=== PATIENT | female | born 1955 | race Caucasian/White ===

== ENCOUNTER 2019-02-03 08:38 | Day surgery (SDC) | payer OTHER ==
[2019-02-03] MEDS ORDERED: FAMOTIDINE 20 MG TAB PO ONE (08:39)
[2019-02-03] MEDS ORDERED: ASPIRIN EC 325 MG TAB PO ONE ×2 (08:39→09:33)
[2019-02-03] MEDS ORDERED: DIAZEPAM 5 MG TAB PO ONE (08:39)
[2019-02-03] MEDS ORDERED: diphenhydrAMINE 25 MG CAP PO ONE ×2 (08:39→09:32)
[2019-02-03] MEDS ORDERED: NS 1,000 ML IV ONE (08:39)
[2019-02-03] MEDS ORDERED: FAMOTIDINE 20 MG TAB ONE (09:32)
[2019-02-03] MEDS ORDERED: DIAZEPAM 5 MG TAB ONE (09:33)
[2019-02-03 09:35] LABS: PLATELET COUNT 279 10^3/uL (150-400)
[2019-02-03 09:51] LABS: INR 1.04 (0.83-1.16); PROTIME(PATIENT) 13.2 SEC (12.0-15.0)
--- NOTE | 2019-02-03 10:28 | PDHPUP ---
History & Physical Update H&P update statement: This history and physical update is based on an assessment of the patient which was completed after admission or registration (within 24 hours), but prior to the surgery/procedure. H&P update: H&P reviewed & patient examined, no change in patient's condition since H&P completed
--- NOTE | 2019-02-03 10:28 | PDPROPOC ---
Sedation Plan of Care Sedation Plan of Care: vital signs stable, mental status noted, patient educated of risks, benefits, alternatives, patient can tolerate sedation ASA Classification: ASA 3 Planned drugs: fentanyl, midazolam Mallampati Score: Class 2 Mallampati Reference Image: Patient passed 3-3-2 rule?: No
--- NOTE | 2019-02-03 11:01 | PDDXCAT ---
Diagnostic Cath Note - . Date: 02/03/19 Elementary Substitute Teacher: Katelynn Indication: other (known valvular heart disease with mitral stenosis) - Procedure Access: right groin Procedure: left heart catheterization, coronary angiography, right heart catheterization - Materials Left Heart Cath size: 5F Left Heart Cath materials: JL3.5, JR4.0, pigtail - Findings-Left Heart Catheterization LM: The left main is 6mm in size and trifurcates into a LAD, Circumflex and Ramus system. LCX: The left circumflex is 2.5mm in size and is weakly co-dominant. The vessel gives rise to a 2.5mm high obtuse marginal branch. There is 60-65% stenosis in the proximal segment of the high obtuse marginal branch. RCA: The right coronary artery is 4mm in size and co-dominant. The vessel gives rise to a PDA branch. There is YUNIER III flow throughout. - Findings-Right Heart Catheterization RA: 6/7/4; SAT 64.5%; RV: 34/2/8 PA: 31/13/21; SAT 66.7% PAOP: 17// AO: 111/53/76; SAT 92.7% CO: 4.88 CI: 2.53 Complications: NONE Estimated blood loss: <50ml Closure method: TR Band Assessment: The patient has non obstructive coronary artery disease for the most part with a single lesion in the high obtuse marginal that may be a target for bypass surgery if open heart surgery is contemplated. There was no LV gram of left heart cath performed due to a mechanical aortic valve. Of note is that the right heart and pulmonary pressures were normal and not elevated as might be expected with severe mitral stenosis. Consider preoperative SAMANTHA to confirm the status of the status of the mitral valve prior to surgery. Plan: The patient will proceed with mitral valve surgery evaluation on Wednesday of next week. Intervention: NONE Patient Problems: Problems Problem Status Onset Mitral stenosis Acute
[2019-02-03] MEDS ORDERED: LIDOCAINE 1% 300 MG/30 ML SDV ONE (11:03)
[2019-02-03] MEDS ORDERED: fentaNYL 100 MCG/2 ML INJ ONE (11:03)
[2019-02-03] MEDS ORDERED: MIDAZOLAM 2 MG/2 ML VIAL ONE (11:04)
[2019-02-03] MEDS ORDERED: IOPAMIDOL (ISOVUE-370) 150 ML BTL IV ONE (11:04)
[2019-02-03] MEDS ORDERED: HEPARIN 10,000 UNIT/10 ML MDV (1,000 UNIT/ML) ONE (11:04)
[2019-02-03] MEDS ORDERED: VERAPAMIL 5 MG/2 ML VIAL ONE (11:04)
[2019-02-03] MEDS ORDERED: ONDANSETRON 4 MG/2 ML VIAL IVP PRN (13:19)
[2019-02-03] MEDS ORDERED: ATROPINE SULFATE 1 MG/10 ML SYR IVP PRN (13:19)
[2019-02-03] MEDS ORDERED: HYDROCODONE/APAP 5/325 TAB PO PRN (13:19)
[2019-02-03] MEDS ORDERED: OXYCODONE/APAP 5/325 TAB PO PRN (13:19)
[2019-02-03] MEDS ORDERED: NITROGLYCERIN 0.4 MG BTL SL PRN (13:19)
--- NOTE | 2019-02-03 13:21 | CPEKG ---
Test Reason : OPEN Blood Pressure : / mmHG Vent. Rate : 076 BPM Atrial Rate : 076 BPM P-R Int : 161 ms QRS Dur : 105 ms QT Int : 428 ms P-R-T Axes : 034 -34 063 degrees QTc Int : 482 ms Sinus rhythm Left ventricular hypertrophy Confirmed by Gavin Mathew ([id number]) on 02/03/2019 1:21:31 PM Referred By: Ciaran Pace Confirmed By:Gavin Mathew
[2019-02-03] MEDS ORDERED: OXYCODONE/APAP 5/325 TAB PO SCH (16:00)
[2019-02-03] MEDS ORDERED: AMITRIPTYLINE HCL 100 MG TAB PO SCH (21:00)
[2019-02-03] MEDS ORDERED: NON-FORMULARY NEW DRUG (Simvastatin [Zocor] 40 MG) PO SCH (21:00)
[2019-02-03] MEDS ORDERED: METOPROLOL TARTRATE 50 MG TAB PO SCH (21:00)
[2019-02-03] MEDS ORDERED: WARFARIN SODIUM 5 MG TAB PO SCH (21:00)
[2019-02-04] MEDS ORDERED: MULTIVITAMINS 1 EACH TAB PO SCH (09:00)
[2019-02-04] MEDS ORDERED: QUINAPRIL PO SCH (09:00)
[2019-02-04] MEDS ORDERED: HYDROCHLOROTHIAZIDE PO SCH (09:00)
[2019-02-04] MEDS ORDERED: LISINOPRIL 20 MG TAB PO SCH (09:00)
[2019-02-04] MEDS ORDERED: [UNRECOGNIZED DRUG - OTHER] PO SCH (09:00)
[2019-02-04] MEDS ORDERED: ASPIRIN 81 MG CHEWABLE TAB PO SCH (09:00)
[2019-02-04] MEDS ORDERED: ALLOPURINOL 100 MG TAB PO SCH (09:00)
== END 2019-02-03 16:30 | disposition home or self-care (01) ==
LOC: FCATH 08:38
PROVIDERS: ATTEND Internal Medicine Cardiovascular Disease
PROC: B2111ZZ Fluoroscopy of Multiple Coronary Arteries using Low Osmolar Contrast (ICD-10-PCS; principal; 2019-02-03)
PROC: 4A023N8 Measurement of Cardiac Sampling and Pressure, Bilateral, Percutaneous Approach (ICD-10-PCS; principal; 2019-02-03)
DX: I05.0 Rheumatic mitral stenosis (principal); Z95.2 Presence of prosthetic heart valve; Z79.01 Long term (current) use of anticoagulants; E78.5 Hyperlipidemia, unspecified; I10 Essential (primary) hypertension; E08.40 Diabetes mellitus due to underlying condition with diabetic neuropathy, unspecified
CPT/HCPCS: J1644; J2250; J3010; Q9967

== ENCOUNTER 2019-02-23 05:18 | Inpatient (IN) | payer OTHER ==
[2019-02-23] MEDS ORDERED: ceFAZolin 2 GM/DEXTROSE 100 ML IV ONE (05:37)
[2019-02-23] MEDS ORDERED: niCARdipine/NACL 200 ML IV ONE (05:37)
[2019-02-23] MEDS ORDERED: AMINOCAPROIC ACID 5 GM/20 ML VIAL IV ONE (05:37)
[2019-02-23] MEDS ORDERED: CITRATE DEXTROSE SOLN 500 ML BAG MISC ONE (05:37)
[2019-02-23] MEDS ORDERED: LIDOCAINE 1% 2 ML INJ ID PRN (05:37)
[2019-02-23] MEDS ORDERED: MANNITOL 25% 12.5 GM/50 ML VIAL IVP ONE (06:00)
[2019-02-23] MEDS ORDERED: MILRINONE/DEXTROSE 100 ML IV ONE (06:00)
[2019-02-23] MEDS ORDERED: NOREPINEPHRINE BITARTRATE 16 MG in NS 250 ML IV ONE (06:00)
[2019-02-23] MEDS ORDERED: CALCIUM CHLORIDE IV ONE (06:00)
[2019-02-23] MEDS ORDERED: EPINEPHRINE IV ONE (06:00)
[2019-02-23] MEDS ORDERED: DOBUTamine/DEXTROSE 250 ML IV ONE (06:00)
[2019-02-23] MEDS ORDERED: INSULIN REGULAR HUMAN 100 UNIT in NS 100 ML IV ONE (06:00)
[2019-02-23] MEDS ORDERED: PHENYLEPHRINE HCL 50 MG in NS 250 ML IV ONE (06:00)
[2019-02-23] MEDS ORDERED: CARDIOPLEGIC SOLUTION 1,052.8 ML PF ONE (06:00)
[2019-02-23] MEDS ORDERED: NS IV ONE (06:00)
[2019-02-23] MEDS ORDERED: CALCIUM CHLORIDE 1 GM/10 ML INJ ONE ×3 (06:42→08:51)
[2019-02-23] MEDS ORDERED: PROTAMINE SULFATE 50 MG/5 ML VIAL IVP ONE (06:42)
[2019-02-23] MEDS ORDERED: MILRINONE/DEXTROSE/100 ML BAG IV ONE (06:43)
[2019-02-23] MEDS ORDERED: HEPARIN 10,000 UNIT/10 ML MDV (1,000 UNIT/ML) ONE ×2 (06:43→06:46)
[2019-02-23] MEDS ORDERED: NA BICARBONATE 50 MEQ/50 ML VIAL ONE ×3 (06:43→14:16)
[2019-02-23] MEDS ORDERED: AMINOCAPROIC ACID 5 GM/20 ML VIAL ONE ×2 (06:43→06:46)
[2019-02-23] MEDS ORDERED: niCARdipine/NACL/200 ML BAG IV ONE (06:44)
[2019-02-23] MEDS ORDERED: ceFAZolin 1 GM VIAL ONE ×3 (06:44→12:58)
[2019-02-23] MEDS ORDERED: DOPamine/DEXTROSE 400 MG/250 ML BAG IV ONE (06:44)
[2019-02-23] MEDS ORDERED: ADENOSINE 6 MG/2 ML VIAL ONE (06:44)
[2019-02-23] MEDS ORDERED: AMIODARONE HCL 150 MG/3 ML VIAL ONE ×2 (06:44→06:46)
[2019-02-23] MEDS ORDERED: ALBUMIN 5% 250 ML BOTTLE IV ONE (06:45)
[2019-02-23] MEDS ORDERED: NITROGLYCERIN/D5W 50 MG/250 ML BOTTLE IV ONE (06:45)
[2019-02-23] MEDS ORDERED: CITRATE DEXTROSE SOLN 500 ML BAG ONE (06:46)
[2019-02-23] MEDS ORDERED: LIDOCAINE 2% 100 MG/5 ML SYR ONE ×2 (06:46→07:18)
[2019-02-23] MEDS ORDERED: methylPREDNISolone SOD SUCC 1 GM/8 ML VIAL ONE (06:47)
[2019-02-23] MEDS ORDERED: MAGNESIUM SULFATE 1 GM/2 ML VIAL ONE (06:47)
[2019-02-23] MEDS: MUPIROCIN 2% 22 GM OINT NS SCH ×3 (06:50→21:21)
[2019-02-23] MEDS ORDERED: LR 1,000 ML IV ONE (06:51)
[2019-02-23] MEDS ORDERED: MIDAZOLAM 2 MG/2 ML VIAL IVP ONE (06:52)
--- NOTE | 2019-02-23 06:58 | PDHPUP ---
History & Physical Update H&P update statement: This history and physical update is based on an assessment of the patient which was completed after admission or registration (within 24 hours), but prior to the surgery/procedure. H&P update: H&P reviewed & patient examined, changes noted (Pt requests exchange of her mechanical aortic valve for a bioprosthesis to avoid snf need for anticoagulation)
--- NOTE | 2019-02-23 07:07 | PDANEPAE ---
ANE History of Present Illness MS with mechanical AV s/f redo stenotomy and MVR/AVR ANE Past Medical History - Cardiovascular History Hx Hypertension: Yes Cardiovascular History Comment: HYPERLIPIDEMIA. MITRAL VALVE STENOSIS - Pulmonary History Hx COPD: No Hx Asthma/Reactive Airway Disease: No Hx Recent Upper Respiratory Infection: No Hx Oxygen in Use at Home: No Hx Sleep Apnea: No Sleep Apnea Screening Result - Last Documented: Negative - Neurologic History Hx Cerebrovascular Accident: No Hx Seizures: No Hx Dementia: No Neurologic History Comment: MIGRAINES WHEN YOUNGER. MENIERES - L EAR - Endocrine History Hx Diabetes: Yes Endocrine History Comment: DM II - Renal History Hx Renal Disorders: Yes Renal History Comment: KIDNEY STONES IN PAST - Liver History Hx Hepatic Disorders: No - Neurological & Psychiatric Hx Hx Neurological and Psychiatric Disorders: No Neurological / Psychiatric History Comment: AMITRIPTYLINE FOR SLEEP - Cancer History Hx Cancer: Yes Cancer History Comment: UTERINE & ABD MASS - Congenital Disorder History Hx Congenital Disorders: No - GI History Hx Gastrointestinal Disorders: Yes Gastrointestinal History Comment: GERD - Other Health History Other Health History: ANEMIA - TAKES IRON - Chronic Pain History Chronic Pain: Yes (BACK PAIN - LUMBAR) - Surgical History Prior Surgeries: HERNIA REPAIR. VALVE REPLACEMENT. HYSTERECTOMY TUMOR ABD REMOVED. TONSILLECTOMY. L ELBOW SURGERY. RAMON KIDNEY STONES - LITHOTRIPSY ANE Review of Systems Review of Systems: - Exercise capacity METS (RN): 3 METS ANE Patient History - Allergies Allergies/Adverse Reactions: No Known Allergies Allergy (Verified 02/01/19 10:06) - Home Medications Home medications: home medication list seen and reviewed Home Medications: Allopurinol [Allopurinol 100 MG (*)] 200 mg PO DAILY 02/01/19 [Last Taken 08:00] Amitriptyline HCl [Elavil 100 MG (*)] 100 mg PO HS 02/01/19 [Last Taken 20:00] Aspirin [Aspirin 81mg (*)] 81 mg PO DAILY 02/01/19 [Last Taken 02/22/19 08:00] Ferrous Sulfate [Ferrous Sulf 325 MG (*)] 325 mg PO BID 02/01/19 [Last Taken 20:00] Lisinopril [Zestril 20 mg (*)] 20 mg PO DAILY 02/01/19 [Last Taken 02/22/19 08: 00] Metoprolol Tartrate [Lopressor 50 mg (*)] 50 mg PO BID 02/01/19 [Last Taken 07:00] Multivitamins [Multivitamin (*)] 1 each PO DAILY 02/01/19 [Last Taken 02/22/19 08:00] Quinapril/Hydrochlorothiazide [Accuretic 20-25 mg Tablet] 1 each PO DAILY [Last Taken 02/22/19 20:00] Simvastatin [Zocor] 40 mg PO HS 02/01/19 [Last Taken 02/22/19 20:00] Warfarin Sodium [Coumadin 5MG (*)] 10 mg PO HS 02/01/19 [Last Taken 02/19/19 20: 00] metFORMIN HCL [Glucophage 1000 mg] 1,000 mg PO BIDMEAL 02/01/19 [Last Taken 06/29] oxyCODONE/APAP 5/325 [Percocet 5/325 (*)] 1 tab PO TID 02/01/19 [Last Taken 23:55] Enoxaparin [Lovenox 80 MG (*)] 80 mg SQ BID 02/10/19 [Last Taken 02/22/19 06:45] - NPO status NPO Since - Liquids (Date): 02/22/19 NPO Since - Liquids (Time): 23:55 NPO Since - Solids (Date): 02/22/19 NPO Since - Solids (Time): 18:30 - Anes Hx Anes Hx: no prior problems - Smoking Hx Smoking Status: Never smoked - Alcohol Use Alcohol Use: None - Family Anes Hx Family Anes Hx: none Family Hx Anesthesia Complications: NEG ANE Labs/Vital Signs - Vital Signs Blood Pressure: 129/73 Heart Rate: 102 Respiratory Rate: 19 O2 Sat (%): 94 Height: 167.64 cm Weight: 83.915 kg ANE Physical Exam - Airway Neck exam: FROM Mallampati Score: Class 2 Mouth exam: normal dental/mouth exam - Pulmonary Pulmonary: no respiratory distress - Cardiovascular Cardiovascular: regular rate and rhythym - ASA Status ASA Status: III ANE Anesthesia Plan Anesthesia Plan: general endotracheal anesthesia Lines/Monitors: arterial line, central line, SAMANTHA
[2019-02-23] MEDS ORDERED: PROPOFOL/EMULSION 500 MG/50 ML BOTTLE IV ONE ×2 (07:17→09:55)
[2019-02-23] MEDS ORDERED: ROCURONIUM 100 MG/10 ML VIAL ONE (07:17)
[2019-02-23] MEDS ORDERED: MIDAZOLAM 2 MG/2 ML VIAL ONE (07:17)
[2019-02-23] MEDS ORDERED: REMIFENTANIL HCL 1 MG VIAL ONE ×2 (07:17→09:55)
[2019-02-23] MEDS ORDERED: fentaNYL 250 MCG/5 ML INJ ONE (07:17)
[2019-02-23] MEDS ORDERED: PHENYLEPHRINE HCL 100 MCG/ML SYR ONE ×3 (07:18→08:46)
[2019-02-23] MEDS ORDERED: ONDANSETRON 4 MG/2 ML VIAL ONE (07:18)
[2019-02-23] MEDS ORDERED: ePHEDrine SULFATE 25 MG/5 ML SYR ONE (07:18)
[2019-02-23] MEDS ORDERED: DEXAMETHASONE 4 MG/ML VIAL ONE ×2 (07:18)
[2019-02-23] MEDS ORDERED: LIDOCAINE HCL 160 MG/4 ML LTA KIT TP ONE (07:24)
[2019-02-23] MEDS ORDERED: DEXMEDETOMIDINE HCL 400 MCG in NS 100 ML IV SCH (07:30)
[2019-02-23] MEDS ORDERED: ROCURONIUM 50 MG/5 ML VIAL ONE ×2 (10:22→12:56)
[2019-02-23] MEDS ORDERED: fentaNYL 100 MCG/2 ML INJ ONE (12:56)
--- NOTE | 2019-02-23 13:33 | POSTOPPROG ---
Post Op Note Date of Operation: 02/23/19 Surgeon: Johny Kelly Assistant: Malena Polanco PA-C Anesthesiologist: Adalid Anesthesia: GET(General Endotracheal) Pre-op Diagnosis: mitral stenosis, mechanical aortic valve Post-op Diagnosis: same Procedure: Redo median sternotomy, MVR#25 Magna, redo AVR#19 Intuity Findings: previous aortic root enlargement, thickened MV w poor leaflet mobility Inf/Abcess present in the surg proc area at time of surgery?: No EBL: n/a Total fluids administered: incl 3u PRBC, 900 ml cell saver Complications: none Bowel Protocol: N/A Clean Closure Performed: Yes Drains: Other (Chest tubes x 3, bilat pleural and ant mediastinal) Specimen(s): old mechanical valve
[2019-02-23] MEDS ORDERED: POTASSIUM Cl (KCl) 50 ML IV PRN (13:38)
[2019-02-23] MEDS ORDERED: D50W 25 GM/50 ML SYR IVP PRN (13:38)
[2019-02-23] MEDS ORDERED: NOREPINEPHRINE BITARTRATE 16 MG in NS 250 ML IV PRN (13:38)
[2019-02-23] MEDS ORDERED: MAGNESIUM HYDROXIDE 30 ML UDCUP PO PRN (13:38)
[2019-02-23] MEDS ORDERED: fentaNYL 100 MCG/2 ML INJ IVP PRN (13:38)
[2019-02-23] MEDS ORDERED: METOCLOPRAMIDE 10 MG/2 ML VIAL IVP PRN (13:38)
[2019-02-23] MEDS ORDERED: ACETAMINOPHEN 650 MG SUPP PR PRN (13:38)
[2019-02-23] MEDS ORDERED: ONDANSETRON DISINTEGRATING 4 MG TAB PO PRN (13:38)
[2019-02-23] MEDS ORDERED: CEPACOL LOZENGE PO PRN (13:38)
[2019-02-23] MEDS ORDERED: ACETAMINOPHEN 325 MG TAB PO PRN (13:38)
[2019-02-23] MEDS ORDERED: ONDANSETRON 4 MG/2 ML VIAL IVP PRN (13:38)
[2019-02-23] MEDS ORDERED: SODIUM CL NASAL 45 ML BTL EACHNARE PRN (13:38)
[2019-02-23] MEDS ORDERED: MEPERIDINE 25 MG/0.5 ML AMP IVP PRN (13:38)
[2019-02-23] MEDS ORDERED: PANTOPRAZOLE SODIUM 40 MG VIAL IVP ONE (13:38)
[2019-02-23] MEDS ORDERED: BISACODYL 10 MG SUPP PR PRN (13:38)
[2019-02-23] MEDS ORDERED: POLYETHYLENE GLYCOL 3350 17 GM PKT PO PRN (13:38)
[2019-02-23] MEDS ORDERED: LACTULOSE 20 GM/30 ML UDCUP PO PRN (13:38)
[2019-02-23] MEDS ORDERED: NS 1,000 ML IV SCH (13:45)
[2019-02-23] MEDS ORDERED: INSULIN REGULAR HUMAN 100 UNIT in NS 100 ML IV SCH (14:00)
[2019-02-23] MEDS ORDERED: DOBUTamine/DEXTROSE 250 ML IV SCH (14:00)
[2019-02-23] MEDS ORDERED: NA BICARBONATE 50 MEQ/50 ML VIAL IV ONE (14:28)
[2019-02-23] MEDS: ALBUMIN 5% 250 ML IV PRN ×2 (14:34→14:55)
--- NOTE | 2019-02-23 15:06 | PDMN ---
Medical Necessity Medical necessity: Pt meets inptp criteria per MD order and [facility] S-[id number], Cardiac Valve Replacement or Repair, 5 days, MCR IP only list, 63 y/o w/mitral stenosis , previous aortic root enlargement, and thickened MV w/poor leaflet mobility underwent MVR, redo AVR, redo sternotomy, anticipate>2MN for ongoing post-op care.
--- NOTE | 2019-02-23 15:07 | GOP ---
[f rep st] OPERATIVE REPORT DATE OF OPERATION: 02/23/2019 SURGEON: Johny Kelly MD DOUGH MIXER HELPER: BALDO Huerta PREOPERATIVE DIAGNOSIS: 1. Severe mitral stenosis. 2. Previous mechanical aortic valve placement. POSTOPERATIVE DIAGNOSIS: PROCEDURE PERFORMED: 1. Redo sternotomy and aortic valve replacement with a 19 mm Freeman Intuity bioprosthesis. 2. Mitral valve replacement with a 25 mm Freeman mitral Magna Ease. FINDINGS: INDICATIONS: This is a 63-year-old woman who just a couple years ago underwent aortic valve replacem ent at [facility]. She had a brief period of time where she felt better, but now has been expe riencing progressive dyspnea on exertion and near syncopal episodes. Echocardiography reveals that s he has a normally functioning very small mechanical mitral valve with a mean gradient of 18, as well as severe mitral stenosis. She was recommended to undergo reoperation. During the workup, I advised her that it may be necessary to remove the aortic prosthesis in order to gain access to the mitral v alve. DESCRIPTION OF PROCEDURE: The patient was taken to the operating room and placed on the operating ta ble in a supine position. After induction of general anesthesia and single-lumen tracheal tube intub ation, the patient was prepped and draped sterilely. The previous incision was opened. The wires we re removed. An oscillating saw was used to open the sternum. This was achieved without difficulty. Once this was completed, we then placed a retractor and spent a great deal of time lysing dense adhe sions throughout the mediastinum. We dissected out the aorta and the superior vena cava and heparini zed the patient. We next cannulated the aorta with a size 8.0 Soft-Flow aortic cannula. This was do ne just proximal to the aortic arch. Next, we cannulated the superior vena cava and cardiopulmonary bypass was then instituted. IVC cannula was also placed then. Once we had exposed the lateral wall of the left atrium and mobilized the aorta again, which was done with some difficulty due to the exte nsive scarring throughout the mediastinum, we then placed a cross-clamp and arrested the heart with 1 L of [place] solution. I opened the aorta. The patient had a previous root enlargement which some what complicated the procedure, but we were able to expose the valve. It was obviously a 19 mm valve . The mechanical valve was excised in order to gain access to her mitral valve. We then opened the left atrium. The valve was very difficult to see even with the aortic valve out. The anterior leafl et was essentially fixed and heavily calcified. This was resected. There was a large part of calciu m in the posterior annulus. We resected the anterior and posterior leaflets, debrided the annulus an d sized this to a 25 mm bioprosthetic valve. Sutures were then placed around the annulus, again with some difficulty due to the calcification, but we seated the 25 mm valve with the Cor-Knot device and closed the left atrium. Attention was redirected to the aortic valve. Notably there was extensive scar tissue in the area of the previous valve. We debrided the annulus. We sized this to a 19 mm In tuity valve and then we placed 4 stitches around the annulus. We seated the valve without difficulty . We blew up the balloon and then secured the valve in place. The aorta was then closed in 2 layers . The cross-clamp was then removed. Atrial and ventricular pacing wires were placed. The patient w as from bypass without difficulty and the post pump transesophageal echo shows a normally f unctioning bioprosthesis in the aortic and mitral position. Having completed this, the protamine was administered. Left, right, and mediastinal chest tubes were placed. Once hemostasis had been achie sania, then the chest was closed with #6 stainless steel wires. Subcutaneous tissue and skin were clos ed with running Vicryl suture. The patient tolerated this well. /[id number]/MODL
[2019-02-23] MEDS: ceFAZolin 2 GM/DEXTROSE 100 ML IV SCH ×2 (15:11→21:39)
[2019-02-23] MEDS ORDERED: ALBUMIN 5% 500 ML BOTTLE IV ONE (16:54)
[2019-02-23] MEDS ORDERED: CALCIUM GLUCONATE 50 ML IV ONE (17:00)
[2019-02-23] MEDS ORDERED: ALBUMIN 5% 500 ML IV ONE (17:00)
--- NOTE | 2019-02-23 17:42 | GCON ---
[f rep st] CONSULTATION PULMONARY CRITICAL CARE CONSULTATION DATE OF CONSULTATION: 02/23/2019 REASON FOR CONSULTATION: Intensive care unit evaluation following open heart surgery for valvular di sease, including ventilatory management. HISTORY: The patient is a 63-year-old. She has a history of previous aortic valve replacement in 28 01, done at [facility]. She was recently found to have severe mitral stenosis. This is ass ociated with increasing shortness of breath. She was scheduled for elective heart surgery. She was taken to the OR today.. Her aortic valve, a mechanical valve, was replaced with a bioprosthetic valv e and mitral valve replacement was also performed. She received 3 units of packed red cells. She aguila s returned to the intensive care unit on the ventilator. A Leon-Lacey catheter is in place. PAST MEDICAL HISTORY: Remarkable for type 2 diabetes, systemic hypertension, hyperlipidemia. OUTPATIENT MEDICATIONS: Included anticoagulation temporarily with full-dose Lovenox, aspirin, Elavil , allopurinol, Lopressor, lisinopril, iron, simvastatin, quinapril/hydrochlorothiazide, oxycodone, an d metformin. ALLERGIES: No known drug allergies. SOCIAL HISTORY: The patient is , with a supportive family. She is a never smoker. Significa nt alcohol is negative. FAMILY HISTORY: Noncontributory next. REVIEW OF SYSTEMS: Unobtainable. PHYSICAL EXAMINATION: GENERAL: Reveals an overweight woman who is on the ventilator, sedated/sleepi ng. She appears comfortable. VITAL SIGNS: Blood pressure is 130/50, heart rate 90 with sinus rhyth m on the monitor. Respiratory rate is 12, set on the ventilator. She is on 50% FiO2 with saturation s in the high 90s. CVP is 6, pulmonary artery pressure is approximately 30/18. Cardiac index is 1.9 . HEENT: Remarkable for equal pupils bilaterally. They are reactive. Oral endotracheal tube is in place. Leon-Lacey catheter is present in the internal jugular on the right. Arterial line is presen t in the left wrist. CHEST: Clear bilaterally. Breath sounds are diminished at the bases. HEART: Regular in rate and rhythm. Valve sounds are fine. There is no obvious gallop. ABDOMEN: Obese, s oft, nontender. Bowel sounds are diminished. : Yoder catheter is in place. She has good urine o utput. EXTREMITIES: There is no lower extremity edema. NEUROLOGIC: Examination is difficult to ev aluate currently, secondary to her sedation. LABORATORY/IMAGING: Postoperative chest x-ray shows lines and tubes to be in good position. The car diac silhouette is relatively large. Markings are increased bilaterally consistent with possible vol ume overload. A retrocardiac infiltrate cannot be excluded. Postoperative laboratory data is pending. ASSESSMENT: 1. Status post aortic valve and mitral valve replacements. 2. Postoperative respiratory insufficiency. This is in part secondary to ongoing sedation, which is wearing off slowly and is secondary to an element of congestive heart failure by x-ray. CPAP weans will be initiated as she continues to wake up. 3. History of type 2 diabetes. She is on insulin drip with adequately controlled blood sugars. 4. History of systemic hypertension, hyperlipidemia. 5. Obesity. PLAN AND RECOMMENDATIONS: The patient will be kept on the ventilator and weaned once mental status a llows. If she does well after CPAP trialing, she may be able to be extubated later today. Laborator y, chest x-ray, and blood gas will be followed. Current medications will be continued. Sedation wit h Precedex will be maintained. Adequate pain control with fentanyl initially will be maintained. Further plans and recommendations will be made based on her progress over the next 12 to 24 hours. /[id number]/MODL
[2019-02-23] MEDS: HYDROCODONE/APAP 5/325 TAB PO PRN ×2 (19:21→23:24)
[2019-02-23] MEDS ORDERED: FAMOTIDINE 20 MG/NACL 50 ML IV SCH (21:00)
[2019-02-23] MEDS ORDERED: CHLORHEXIDINE GLUCONATE 15 ML UDL PO SCH (21:00)
[2019-02-24] MEDS ORDERED: niCARdipine/NACL 200 ML IV SCH (01:30)
[2019-02-24] MEDS: HYDROCODONE/APAP 5/325 TAB PO PRN ×4 (03:47→23:40)
[2019-02-24 04:30] LABS: PLATELET COUNT 103 10^3/uL (150-400)
[2019-02-24 04:41] LABS: INR 1.07 (0.83-1.16); PROTIME(PATIENT) 13.5 SEC (12.0-15.0)
[2019-02-24] MEDS: ceFAZolin 2 GM/DEXTROSE 100 ML IV SCH ×3 (05:47→21:34)
--- NOTE | 2019-02-24 07:03 | SOAPPROG ---
SOAP Progress Note Assessment/Plan: POD #1: redo sternotomy, explant mechanical aortic valve, AVR with #19 Freeman Intuity bioprosthesis, MV replacement with #25 Magna bioprosthesis Severe mitral stenosis s/p MVR with bioprosthesis - [place]/AL/FC to be removed - CTs to possibly be removed later if drainage low - Coumadin with INR goal 2-3 for 2 months (start POD #3) with adjunctive ASA 325 mg h/o mechanical AVR s/p explant and replacement with #19 Freeman Intuity bioprosthesis - Mgmt as per MVR Acute post-op blood loss anemia with coagulopathy - Stable s/p 3U PRBC DM 2, well-controlled by A1c of 5.7% - Insulin gtt to ISS - Metformin mgmt as per hospitalist HTN - Beta-remy to be restarted today - Home ACEi as tolerated DVT prophylaxis - SCDs Disposition - PCU later today Subjective: Has some incisional pain. Denies SOB. Objective: Vital Signs Temp Pulse Resp BP Pulse Ox 37 C 80 17 132/40 H 92 02/24/19 06:00 02/24/19 06:00 02/24/19 06:00 02/24/19 06:00 02/24/19 06:00 Laboratory Results 02/24/19 04:10 02/24/19 04:10 02/23/19 02/24/19 02/25/19 05:59 05:59 05:59 Intake Total 3144 Output Total 1425 Balance 1719 PT 13.5 SEC (12.0-15.0) 02/24/19 04:10 INR 1.07 (0.83-1.16) 02/24/19 04:10 Physical Exam - Physical Exam General Appearance: WD/WN, alert, no apparent distress, obese EENT: No scleral icterus (R), No scleral icterus (L) Neck: normal inspection Respiratory: No respiratory distress Cardiac/Chest: regular rate, rhythm Abdomen: non-tender, soft, No distended Skin: normal color, warm/dry Extremities: No pedal edema Neuro/Psych: no motor/sensory deficits, alert, normal mood/affect, oriented x 3 ICD10 Worksheet Patient Problems: Problems Problem Status Onset Acute blood loss anemia Acute S/P aortic valve replacement with bioprosthetic valve Acute ~02/23/19 S/P mitral valve replacement with bioprosthetic valve Acute ~02/23/19 Chronic anemia Chronic Chronic anticoagulation Chronic Hx of mechanical aortic valve replacement Chronic Mitral stenosis Chronic
[2019-02-24] MEDS ORDERED: METOPROLOL TARTRATE 25 MG TAB PO SCH (09:00)
[2019-02-24] MEDS: PANTOPRAZOLE SODIUM 40 MG TAB PO SCH (10:18)
[2019-02-24] MEDS: ALLOPURINOL 100 MG TAB PO SCH (10:18)
[2019-02-24] MEDS: traMADol 50 MG TAB PO PRN (10:18)
[2019-02-24] MEDS: ASPIRIN EC 325 MG TAB PO SCH (10:19)
[2019-02-24] MEDS: MUPIROCIN 2% 22 GM OINT NS SCH ×2 (10:19→20:08)
--- NOTE | 2019-02-24 13:14 | ASMTCASEMG ---
Living Arrangements What is your living Answers: With Spouse arrangement? Who do you live with? Type Of Residence What kind of residence do Answers: House you live in? Discharge Plan Comments Coordination Status Comments Notes: Patient is a 63yo female who has severe mitral regurgitation and is in need of right and left heart cath in preparation for reoperative sternotomy and mitral valve replacement. PT/OT Cardiac rehab ordered for the patient. The patient lives in [place] and states she wants to return home after surgery. Her insurance plan does not cover rehab programs and she states she has recovered from these type of surgeries at home before. Patient lives with her so she has support. CM following. Date Signed: 02/24/2019 01:13 PM Electronically Signed By:Marlen Wadsworth LCSW
[2019-02-24] MEDS: INSULIN LISPRO 100 UNIT/ML SC SCH ×2 (14:28→17:42)
[2019-02-24] MEDS ORDERED: METOPROLOL TARTRATE 25 MG TAB PO ONE (15:00)
[2019-02-24] MEDS ORDERED: MAGNESIUM SULF 1 GM/DEXTROSE 100 ML IV ONE (15:30)
--- NOTE | 2019-02-24 16:38 | PDINTPN ---
Chain Offbearer Progress Note Assessment/Plan: Assessment: Status post open heart surgery: Redo aortic valve replacement, mitral valve replacement. Doing well postoperatively. Hemodynamic stable. Acute blood-loss anemia. Hematocrit 28 this morning. Does have ongoing oozing from her Cordis as well as some blood loss from chest tubes. Will recheck H&H this afternoon. Metabolic: No issues currently identified. Diabetes mellitus: Type 2. Glucoses under good control. On sliding scale insulin as needed. Plan: Continue care, present medications. Repeat H&H this afternoon. Follow laboratory, chest x-ray in a.m.. 30 min of critical care time spent directly with the patient. Discussed with nursing, CVS. Subjective: Doing okay. Some chest pain on the left with deep breaths. Objective: Vital Signs Temp Pulse Resp BP Pulse Ox 36.8 C 66 18 135/59 H 95 02/24/19 16:00 02/24/19 16:00 02/24/19 16:00 02/24/19 16:00 02/24/19 16:00 Laboratory Results 02/24/19 04:10 02/24/19 14:00 02/23/19 02/24/19 02/25/19 05:59 05:59 05:59 Intake Total 3144 250 Output Total 1425 315 Balance 1719 -65 PT 13.5 SEC (12.0-15.0) 02/24/19 04:10 INR 1.07 (0.83-1.16) 02/24/19 04:10 CXR: Good aeration bilaterally. Large heart, increased markings. Lines and tubes in good position. Physical Exam - Physical Exam General Appearance: alert, no apparent distress, obese EENT: PERRL/EOMI, other (Nasal cannula in place at 2 L) Neck: normal inspection (No obvious JVD) Respiratory: lungs clear (Anteriorly), decreased breath sounds (At bases), other (Chest tubes in place, serosanguineous drainage) Cardiac/Chest: regular rate, rhythm (With ectopy), other (Oozing from Cordis, blood soaking dressings, oozing around opsite), No gallop Abdomen: non-tender, soft, No normal bowel sounds (Decreased, present) Pelvic Exam: other (Yoder catheter in place, good urine output) Skin: warm/dry, pallor Extremities: pedal edema (Trace) Neuro/Psych: no motor/sensory deficits, No cognition abnormalities ICD10 Worksheet Patient Problems: Problems Problem Status Onset Chronic anticoagulation Chronic Chronic anemia Chronic Acute blood loss anemia Acute S/P mitral valve replacement with bioprosthetic valve Acute ~02/23/19 S/P aortic valve replacement with bioprosthetic valve Acute ~02/23/19 Hx of mechanical aortic valve replacement Chronic Mitral stenosis Chronic
[2019-02-24] MEDS: METOPROLOL TARTRATE 25 MG TAB PO SCH (20:08)
[2019-02-24] MEDS: AMITRIPTYLINE HCL 100 MG TAB PO SCH (20:08)
[2019-02-25 05:44] LABS: PLATELET COUNT 102 10^3/uL (150-400)
[2019-02-25 05:47] LABS: INR 1.09 (0.83-1.16); PROTIME(PATIENT) 13.7 SEC (12.0-15.0)
[2019-02-25] MEDS: HYDROCODONE/APAP 5/325 TAB PO PRN ×4 (07:24→23:08)
[2019-02-25] MEDS: METOPROLOL TARTRATE 25 MG TAB PO SCH ×2 (07:24→21:31)
[2019-02-25] MEDS: PANTOPRAZOLE SODIUM 40 MG TAB PO SCH (07:24)
[2019-02-25] MEDS: INSULIN LISPRO 100 UNIT/ML SC SCH ×3 (07:48→17:45)
[2019-02-25] MEDS: ASPIRIN EC 325 MG TAB PO SCH (08:40)
[2019-02-25] MEDS: SENNOSIDES/DOCUSATE SODIUM TAB PO SCH ×2 (08:40→21:31)
[2019-02-25] MEDS: MUPIROCIN 2% 22 GM OINT NS SCH (08:40)
[2019-02-25] MEDS: ALLOPURINOL 100 MG TAB PO SCH (08:40)
--- NOTE | 2019-02-25 09:20 | SOAPPROG ---
SOAP Progress Note Assessment/Plan: POD #2: redo sternotomy, explant mechanical aortic valve, AVR with #19 Freeman Intuity bioprosthesis, MV replacement with #25 Magna bioprosthesis Severe mitral stenosis s/p MVR with bioprosthesis - Coumadin with INR goal 2-3 for 2 months (start POD #3) with adjunctive ASA 325 mg h/o mechanical AVR s/p explant and replacement with #19 Freeman Intuity bioprosthesis - Mgmt as per MVR Acute post-op blood loss anemia with coagulopathy - Stable s/p 3U PRBC DM 2, well-controlled by A1c of 5.7% - Insulin gtt to ISS - Metformin mgmt as per hospitalist HTN - Beta-remy - Home ACEI as tolerated DVT prophylaxis - SCDs PTOT - Rec SNF Disposition Plan to remove right chest tube later today Start diuresis/K supplementation Plan to remove TCPW tomorrow Coumadin tomorrow Subjective: No complaints Objective: Vital Signs Temp Pulse Resp BP Pulse Ox 37.3 C 96 16 153/61 H 96 02/25/19 07:23 02/25/19 07:23 02/25/19 07:23 02/25/19 07:23 02/25/19 07:23 Laboratory Results 02/25/19 05:20 02/25/19 05:20 02/24/19 02/25/19 02/26/19 05:59 05:59 05:59 Intake Total 3144 1576 Output Total 1425 1059 60 Balance 1719 517 -60 PT 13.7 SEC (12.0-15.0) 02/25/19 05:20 INR 1.09 (0.83-1.16) 02/25/19 05:20 - Physical Exam General Appearance: WD/WN, alert, no apparent distress, obese EENT: No scleral icterus (R), No scleral icterus (L) Neck: normal inspection Respiratory: No respiratory distress Cardiac/Chest: regular rate, rhythm Abdomen: non-tender, soft, No distended Skin: normal color, warm/dry Extremities: Pedal edema Neuro/Psych: no motor/sensory deficits, alert, normal mood/affect, oriented x 3 ICD10 Worksheet Patient Problems: Problems Problem Status Onset Acute blood loss anemia Acute S/P aortic valve replacement with bioprosthetic valve Acute ~02/23/19 S/P mitral valve replacement with bioprosthetic valve Acute ~02/23/19 Chronic anemia Chronic Chronic anticoagulation Chronic Hx of mechanical aortic valve replacement Chronic Mitral stenosis Chronic
[2019-02-25] MEDS: POTASSIUM CL 10 MEQ TAB PO SCH (09:33)
[2019-02-25] MEDS: FUROSEMIDE 40 MG TAB PO SCH (09:33)
--- NOTE | 2019-02-25 14:53 | GCON ---
[f rep st] CONSULTATION INTERNAL MEDICINE CONSULTATION DATE OF CONSULTATION: 02/25/2019 REFERRING PHYSICIAN: Jayden Prather DO REASON FOR CONSULTATION: Medical opinion regarding postoperative management of diabetes. HISTORY: Patient is a 63-year-old female who was admitted for an elective mitral valve replacement f or severe MS. A few years ago, she had an aortic valve replacement, and she had that changed to a bi oprosthetic valve as well. Her presenting symptom was increasing shortness of breath. She was diagnosed with diabetes 7 years ago. She follows a good diabetic diet, as her is als o diabetic and they do it together. She does not know what her last hemoglobin A1c was. She checks her blood glucose at home once a day in the morning. It typically runs 119-120. Her medication is m etformin 1000 mg p.o. b.i.d. She follows for diabetes with her primary care doctor. PAST MEDICAL HISTORY: 1. Aortic valve replacement. Now mechanical valve replacement. 2. Diabetes, type 2. 3. Hypertension. 4. Hyperlipidemia. 5. Obesity, BMI 35. MEDICATIONS: Please see computerized record for full detailed list. ALLERGIES: No known drug allergies. SOCIAL HISTORY: No smoking. No alcohol. She lives with her . REVIEW OF SYSTEMS: A complete review of systems obtained. Review of systems negative on constitutio nal, HEENT, GI, pulmonary, vascular, , hematology, skin, muscular, endocrine, psych, except for pos itives as in HPI. FAMILY HISTORY: Reviewed, noncontributory to presenting complaint. PHYSICAL EXAMINATION: GENERAL: Well-developed, well-nourished female in no distress. VITAL SIGNS: Temperature is 37.0, pulse 77, blood pressure 110/47, sat 98% on 4 L. EYES: Normal conjunctivae. Pupils react to light. ENT: Normal ears, nose. Hearing intact. Normal lips and teeth. Oropharynx moist. NECK: Trachea midline. No thyromegaly. CHEST: Normal respiratory effort. Lungs clear to auscultation bilaterally. CARDIOVASCULAR: Regular rhythm. No murmur. 1+ lower extremity edema. ABDOMEN: Soft, nontender. No hepatosplenomegaly. SKIN: Warm, dry, intact. No rash. MUSCULOSKELE DOUGLAS: No cyanosis or clubbing. Strength 5/5 upper and lower extremities. NEUROLOGIC: Cranial nerve s intact. Normal sensation to light touch. PSYCH: Alert and oriented x3. Normal affect. Normal j udgment. Normal memory. LABORATORY DATA: White count 22.96, hematocrit 29.0, platelets 102. Sodium 134, potassium 4.6, chlo ride 101, bicarb 24, BUN 22, creatinine 0.9, glucose 174. Chest x-ray shows mild congestive heart fa ilure. MEDICAL RECORDS REVIEW: I reviewed medical records. She was admitted here on February [address] surgery and had bioprosthetic valve placed to treat mitral stenosis as well as replace a previous mechanical aortic valve. This was done by Dr. Kelly. [facility] ASSESSMENT/PLAN: 1. Diabetes, type 2. Review of old record reveals her last hemoglobin A1c just prior to surgery was well-controlled at 5.7. Post surgery, recommend insulin sliding scale with lispro. Her metformin c an be restarted once we are sure her renal function has stabilized. 2. Mitral valve replacement and redo aortic valve replacement with bioprosthetic valve. Management per CT Surgery team. She is doing well at this point, out of the ICU. She is taking p.o. 3. Congestive heart failure. She has been started on Lasix. 4. Obesity. BMI 35. Thank you very much for this consultation. Hospitalist Medicine will continue to follow for diabetes management. /[id number]/MODL
[2019-02-25] MEDS: AMITRIPTYLINE HCL 100 MG TAB PO SCH (21:31)
[2019-02-26] MEDS: HYDROCODONE/APAP 5/325 TAB PO PRN ×4 (06:01→23:40)
[2019-02-26 06:26] LABS: INR 1.1 (0.83-1.16); PROTIME(PATIENT) 13.8 SEC (12.0-15.0)
--- NOTE | 2019-02-26 07:08 | SOAPPROG ---
SOAP Progress Note Assessment/Plan: POD #3: redo sternotomy, explant mechanical aortic valve, AVR with #19 Freeman Intuity bioprosthesis, MV replacement with #25 Magna bioprosthesis Severe mitral stenosis s/p MVR with bioprosthesis - Coumadin with INR goal 2-3 for 2 months (1st dose 02/26) - Adjunctive ASA 325 mg - Continue fluid restriction and daily diuretic h/o mechanical AVR s/p explant and replacement with #19 Freeman Intuity bioprosthesis - Mgmt as per MVR Acute post-op blood loss anemia with coagulopathy - Stable s/p 3U PRBC DM 2, well-controlled by A1c of 5.7% - Insulin gtt to ISS - Metformin mgmt as per hospitalist HTN - Beta-remy, titrate to home dose as tolerated - Home ACEI as tolerated DVT prophylaxis - SCDs, ambulate, coumadin PTOT - Rec SNF. Patient prefers home, however, she appears to have an open mind about rehab. Dispo: Remove right chest tube Remove TCPW Coumadin today Routine post-op TTE tomorrow Subjective: Poor sleep. Objective: Vital Signs Temp Pulse Resp BP Pulse Ox 36.6 C 84 18 108/51 L 100 02/26/19 03:19 02/26/19 03:19 02/26/19 03:19 02/26/19 03:19 02/26/19 03:19 Laboratory Results 02/25/19 05:20 02/26/19 06:10 02/25/19 02/26/19 02/27/19 05:59 05:59 05:59 Intake Total 1576 675 Output Total 1059 2365 Balance 517 -1690 PT 13.8 SEC (12.0-15.0) 02/26/19 06:10 INR 1.10 (0.83-1.16) 02/26/19 06:10 - Physical Exam General Appearance: WD/WN, alert, no apparent distress, obese EENT: No scleral icterus (R), No scleral icterus (L) Neck: normal inspection Respiratory: No respiratory distress Cardiac/Chest: regular rate, rhythm Abdomen: non-tender, soft, No distended Skin: normal color, warm/dry Extremities: Pedal edema Neuro/Psych: no motor/sensory deficits, alert, normal mood/affect, oriented x 3 ICD10 Worksheet Patient Problems: Problems Problem Status Onset Acute blood loss anemia Acute S/P aortic valve replacement with bioprosthetic valve Acute ~02/23/19 S/P mitral valve replacement with bioprosthetic valve Acute ~02/23/19 Chronic anemia Chronic Chronic anticoagulation Chronic Hx of mechanical aortic valve replacement Chronic Mitral stenosis Chronic
[2019-02-26] MEDS: ASPIRIN EC 325 MG TAB PO SCH (09:08)
[2019-02-26] MEDS: POTASSIUM CL 10 MEQ TAB PO SCH (09:09)
[2019-02-26] MEDS: PANTOPRAZOLE SODIUM 40 MG TAB PO SCH (09:09)
[2019-02-26] MEDS: ALLOPURINOL 100 MG TAB PO SCH (09:09)
[2019-02-26] MEDS: FUROSEMIDE 40 MG TAB PO SCH (09:09)
[2019-02-26] MEDS: SENNOSIDES/DOCUSATE SODIUM TAB PO SCH ×2 (09:09→19:42)
[2019-02-26] MEDS: METOPROLOL TARTRATE 25 MG TAB PO SCH ×2 (09:10→19:42)
[2019-02-26] MEDS: INSULIN LISPRO 100 UNIT/ML SC SCH ×3 (09:10→17:35)
[2019-02-26] MEDS ORDERED: PNEUMOCOCCAL 0.5ML VACCINE VIAL (PNEUMOVAX 23) IM ONE (09:19)
[2019-02-26] MEDS ORDERED: WARFARIN SODIUM 2.5 MG TAB PO ONE (16:00)
--- NOTE | 2019-02-26 16:00 | HOSPPROG ---
Hospitalist Progress Note Assessment/Plan: * DM II -on insulin sliding scale post-op - doing well -advancing diet as able -creatinine stable -restart metformin * Aortic and mitral bioprosthetic replacement -doing well post surgery * Obesity BMI 32 * Acute blood loss anemia - following -s/p 3 units Subjective: tolerating PO, almost back to baseline diet Objective: Vital Signs Temp Pulse Resp BP Pulse Ox 36.9 C 88 18 95/46 L 95 02/26/19 15:16 02/26/19 15:16 02/26/19 15:16 02/26/19 15:16 02/26/19 15:16 Laboratory Results 02/25/19 05:20 02/26/19 06:10 02/25/19 02/26/19 02/27/19 05:59 05:59 05:59 Intake Total 1576 675 580 Output Total 1059 2365 1550 Balance 517 -1690 -970 PT 13.8 SEC (12.0-15.0) 02/26/19 06:10 INR 1.10 (0.83-1.16) 02/26/19 06:10 - Physical Exam Constitutional: no apparent distress, appears nourished, not in pain Cardiovascular: regular rate and rhythym, no murmur, rub, or gallop Respiratory: no respiratory distress, no rales or rhonchi, clear to auscultation Gastrointestinal: normoactive bowel sounds, soft, non-tender abdomen, no palpable masses Skin: no rashes or abrasions, no fluctuance, no induration Neurologic: AAOx3, sensation intact bilaterally Psychiatric: interacting appropriately, not anxious, not encephalopathic, thought process linear ICD10 Worksheet Patient Problems: Problems Problem Status Onset Chronic anticoagulation Chronic Chronic anemia Chronic Acute blood loss anemia Acute S/P mitral valve replacement with bioprosthetic valve Acute ~02/23/19 S/P aortic valve replacement with bioprosthetic valve Acute ~02/23/19 Hx of mechanical aortic valve replacement Chronic Mitral stenosis Chronic
[2019-02-26] MEDS: metFORMIN HCL 500 MG TAB PO SCH (16:33)
[2019-02-26] MEDS: AMITRIPTYLINE HCL 100 MG TAB PO SCH (19:43)
[2019-02-26] MEDS: traMADol 50 MG TAB PO PRN (19:47)
[2019-02-27 04:57] LABS: INR 1.12 (0.83-1.16)
[2019-02-27] MEDS: HYDROCODONE/APAP 5/325 TAB PO PRN ×3 (06:29→20:19)
--- NOTE | 2019-02-27 07:22 | SOAPPROG ---
SOAP Progress Note Assessment/Plan: POD #4: redo sternotomy, explant mechanical aortic valve, AVR with #19 Freeman Intuity bioprosthesis, MV replacement with #25 Magna bioprosthesis Severe mitral stenosis s/p MVR with bioprosthesis - Coumadin with INR goal 2-3 for 2 months (1st dose 02/26) - Adjunctive ASA 325 mg - Continue fluid restriction and daily diuretic - CT/TCPW out h/o mechanical AVR s/p explant and replacement with #19 Freeman Intuity bioprosthesis - Mgmt as per MVR Acute post-op blood loss anemia with coagulopathy - Stable s/p 3U PRBC DM 2, well-controlled by A1c of 5.7% - Metformin mgmt as per hospitalist HTN - Beta-remy, titrate to home dose as tolerated - Home ACEI as tolerated DVT prophylaxis - SCDs, ambulate, Coumadin PTOT - Rec SNF. CM 02/24 note states her insurance does not cover rehab. Will confirm with CM. Lives in [place]. Patient very motivated to return home. , Momo, is retired and able to assist. D/w Dr. Prather and he is okay with her going home. Dispo: Coumadin today Restart home statin Routine post-op TTE today Anticipate home with [facility] services Wednesday Subjective: Slept well. Objective: Vital Signs Temp Pulse Resp BP Pulse Ox 36.4 C 86 15 96/50 L 98 02/27/19 03:36 02/27/19 04:25 02/27/19 03:36 02/27/19 04:25 02/27/19 04:25 Laboratory Results 02/25/19 05:20 02/27/19 04:26 02/26/19 02/27/19 02/28/19 05:59 05:59 05:59 Intake Total 675 1030 Output Total 2365 2000 Balance -1690 -970 PT 14.0 SEC (12.0-15.0) 02/27/19 04:26 INR 1.12 (0.83-1.16) 02/27/19 04:26 - Physical Exam General Appearance: WD/WN, alert, no apparent distress, obese EENT: No scleral icterus (R), No scleral icterus (L) Neck: normal inspection Respiratory: No respiratory distress Cardiac/Chest: regular rate, rhythm Abdomen: non-tender, soft, No distended Skin: normal color, warm/dry Extremities: Pedal edema Neuro/Psych: no motor/sensory deficits, alert, normal mood/affect, oriented x 3 ICD10 Worksheet Patient Problems: Problems Problem Status Onset Acute blood loss anemia Acute S/P aortic valve replacement with bioprosthetic valve Acute ~02/23/19 S/P mitral valve replacement with bioprosthetic valve Acute ~02/23/19 Chronic anemia Chronic Chronic anticoagulation Chronic Hx of mechanical aortic valve replacement Chronic Mitral stenosis Chronic
--- NOTE | 2019-02-27 08:07 | POSTANESTH ---
Post Anesthetic Evaluation Cardiovascular Status: Normal, Stable Respiratory Status: Normal, Stable Level of Consciousness/Mental Status: Can Participate in Eval Pain Control: Adequate, Prn Tx Ordered Nausea/Vomiting Control: Adequate, Prn Tx Ordered Complications Possibly Related to Anesthesia: None Noted
[2019-02-27] MEDS: FUROSEMIDE 40 MG TAB PO SCH (09:09)
[2019-02-27] MEDS: metFORMIN HCL 500 MG TAB PO SCH ×2 (09:09→17:23)
[2019-02-27] MEDS: ALLOPURINOL 100 MG TAB PO SCH (09:09)
[2019-02-27] MEDS: ASPIRIN EC 325 MG TAB PO SCH (09:09)
[2019-02-27] MEDS: POTASSIUM CL 10 MEQ TAB PO SCH (09:10)
[2019-02-27] MEDS: PANTOPRAZOLE SODIUM 40 MG TAB PO SCH (09:10)
[2019-02-27] MEDS: SENNOSIDES/DOCUSATE SODIUM TAB PO SCH ×2 (09:12→20:53)
[2019-02-27] MEDS: ATORVASTATIN CALCIUM 20 MG TAB PO SCH (09:19)
[2019-02-27] MEDS: INSULIN LISPRO 100 UNIT/ML SC SCH ×3 (09:33→17:41)
[2019-02-27] MEDS: METOPROLOL TARTRATE 25 MG TAB PO SCH ×2 (11:06→20:19)
--- NOTE | 2019-02-27 11:45 | ECHO ---
[email or web address] [address] [address] Main: [phone] Echocardiography Examination Transthoracic Name: DIEGO SHEPARD MR#: [id number] Study Date: 02/27/2019 Study Time: 10:35 AM Date of : 1955 Age: 63 year(s) Height: 167.6 cm (66 in.) Weight: 89.36 kg (197 lb.) BSA: 1.99 m2 Gender: Female Examination: Echo Contrast: Image Quality: Adequate Rhythm: Heart Rate: BP: 83 mmHg/43 mmHg Indication: S/P redo MVR/AVR Procedure Staff Referring Physician: Balancing Machine Set Up Worker: Leta Fairchild RDCS Reading Physician: Gavin Mathew MD Requesting Provider: Ordering Physician: Cheng Garcia Indication: S/P redo MVR/AVR Measurements Chambers AV/MV Label Value Normal Value Label Value Normal Value LVDd, 2D 3.5 cm (3.9cm - 5.3cm) AV PGmean 9 mmHg LVDs, 2D 2.6 cm (2.1cm - 4cm) MV VTI 48 cm IVSd, 2D 1.3 cm (0.6cm - 1.1cm) MV PGmax 23 mmHg LVPWd, 2D 1.2 cm MV PGmean 10 mmHg LA Volume, BP 83 ml (22ml - 52ml) MV PHT 0.06 s LADs, 2D 5 cm (2.7cm - 3.8cm) MVA PHT 3.4 cm2 LAESV index, BP 41.7 ml/m2 MV PHT 64 ms Additional Vessels TV/PV Label Value Normal Value Label Value Normal Value AoRoot, 2D 2 cm (1.4cm - 2.6cm) RA Pressure 5 mmHg RVSP 32 mmHg TR Pmax 27 mmHg TR Vmax 2.62 m/s Conclusions Left Ventricle: Left ventricle is normal in size. There is moderate concentric left ventricular hypertrophy. Patient: DIEGO SHEPARD Study Date: 02/27/2019 Page 1 of 2 10:35 AM Mitral Valve: MV mean PG is 10mmHG. MV prosthesis is well seated.. A bioprosthetic mitral valve is in place measuring 25 mm. Aortic Valve: AV max PG is 15mmHG. AV mean PG is 9mmHG.. The aortic valve is a bioprosthesis measuring 19 mm. Tricuspid Valve: Moderate tricuspid regurgitation. Findings Left Ventricle: Left ventricle is normal in size. Global hypercontractility of the left ventricle. EF range is estimated at 75 % - 80 %. There is moderate concentric left ventricular hypertrophy. There are no regional wall motion abnormalities. Right Ventricle: Normal size right ventricle. Left Atrium: The left atrium is mildly to moderately dilated. Right Atrium: The right atrium is normal in size. Mitral Valve: MV mean PG is 10mmHG. MV prosthesis is well seated.. No mitral regurgitation. A bioprosthetic mitral valve is in place measuring 25 mm. No MV prosthesis regurgitation. Aortic Valve: AV max PG is 15mmHG. AV mean PG is 9mmHG.. No aortic valve regurgitation. The aortic valve is a bioprosthesis measuring 19 mm. Tricuspid Valve: Tricuspid valve leaflets are structurally normal. Moderate tricuspid regurgitation. Right Ventricular systolic pressure is measured at 32 mmHg. Aorta: The aortic root size in 2D measures 2.0 cm. Aorta Measurements AoRoot, 2D is 2.0 cm. Exam Details Procedure Ordered: Echo Procedure Status: Routine study Image Quality: Adequate Facility Location: Cardiac Echo 1 (No Signature Object) Patient: DIEGO SHEPARD Study Date: 02/27/2019 Page 2 of 2 10:35 AM [id number]
[2019-02-27] MEDS ORDERED: WARFARIN SODIUM 2.5 MG TAB PO ONE (16:00)
--- NOTE | 2019-02-27 16:32 | HOSPPROG ---
Hospitalist Progress Note Assessment/Plan: * DM II -on insulin sliding scale post-op - doing well -tolerating PO, metformin restarted * Aortic and mitral bioprosthetic replacement -doing well post surgery * Obesity BMI 32 * Acute blood loss anemia - following -s/p 3 units Subjective: Tolerating PO and resume of metformin - plan is home Wednesday Objective: Vital Signs Temp Pulse Resp BP Pulse Ox 36.8 C 103 H 16 91/50 L 95 02/27/19 15:59 02/27/19 15:59 02/27/19 15:59 02/27/19 15:59 02/27/19 15:59 Laboratory Results 02/25/19 05:20 02/27/19 04:26 02/26/19 02/27/19 02/28/19 05:59 05:59 05:59 Intake Total 675 1030 Output Total 2365 2000 300 Balance -1690 -970 -300 PT 14.0 SEC (12.0-15.0) 02/27/19 04:26 INR 1.12 (0.83-1.16) 02/27/19 04:26 - Physical Exam Constitutional: no apparent distress, appears nourished, not in pain Cardiovascular: regular rate and rhythym, no murmur, rub, or gallop Respiratory: no respiratory distress, no rales or rhonchi, clear to auscultation Gastrointestinal: normoactive bowel sounds, soft, non-tender abdomen, no palpable masses Skin: no rashes or abrasions, no fluctuance, no induration Neurologic: AAOx3, sensation intact bilaterally Psychiatric: interacting appropriately, not anxious, not encephalopathic, thought process linear ICD10 Worksheet Patient Problems: Problems Problem Status Onset Chronic anticoagulation Chronic Chronic anemia Chronic Acute blood loss anemia Acute S/P mitral valve replacement with bioprosthetic valve Acute ~02/23/19 S/P aortic valve replacement with bioprosthetic valve Acute ~02/23/19 Hx of mechanical aortic valve replacement Chronic Mitral stenosis Chronic
--- NOTE | 2019-02-27 17:59 | ASMTCMCOM ---
CM Note CM Note Notes: 02/27/2019 Case Management Note Met w/pt to discuss insurance coverage. Requested pt contact insurance company for benefit coverage of home care and cardiac outpatient rehab. Faxed referral to [facility] via [employer]; waiting to hear if insurance is accepted by [facility]. Therapies recommending home care. Discussed w/Cheng meraz am. Case Management d/c poc: to be determined. Case Management to follow. Date Signed: 02/27/2019 04:23 PM Electronically Signed By:Vickie Francois RN
[2019-02-27] MEDS: AMITRIPTYLINE HCL 100 MG TAB PO SCH (20:19)
[2019-02-28] MEDS: HYDROCODONE/APAP 5/325 TAB PO PRN ×3 (03:04→21:02)
[2019-02-28 06:36] LABS: INR 1.06 (0.83-1.16); PROTIME(PATIENT) 13.4 SEC (12.0-15.0)
--- NOTE | 2019-02-28 07:46 | SOAPPROG ---
SOAP Progress Note Assessment/Plan: POD #5: redo sternotomy, explant mechanical aortic valve, AVR with #19 Freeman Intuity bioprosthesis, MV replacement with #25 Magna bioprosthesis Severe mitral stenosis s/p MVR with bioprosthesis - Coumadin with INR goal 2-3 for 2 months (start POD #3) with adjunctive ASA 325 mg h/o mechanical AVR s/p explant and replacement with bioprosthesis - Mgmt as per MVR Acute post-op blood loss anemia with coagulopathy - Stable s/p 3U PRBC DM 2, well-controlled by A1c of 5.7% - Mgmt as per hospitalist HTN - Beta-remy restarted - Home ACEi as tolerated DVT prophylaxis - SCDs Disposition - PCU - Home Wednesday preferable with outpatient cardiac rehab Subjective: Feel well. Pain well-controlled. Denies SOB. Objective: Vital Signs Temp Pulse Resp BP Pulse Ox 36.8 C 104 H 18 105/57 L 96 02/28/19 07:35 02/28/19 07:35 02/28/19 07:35 02/28/19 07:35 02/28/19 07:35 Laboratory Results 02/25/19 05:20 02/28/19 06:00 02/27/19 02/28/19 03/01/19 05:59 05:59 05:59 Intake Total 1030 775 Output Total 2000 1100 Balance -970 -325 PT 13.4 SEC (12.0-15.0) 02/28/19 06:00 INR 1.06 (0.83-1.16) 02/28/19 06:00 Physical Exam - Physical Exam General Appearance: WD/WN, alert, no apparent distress EENT: No scleral icterus (R), No scleral icterus (L) Neck: normal inspection Respiratory: No respiratory distress Cardiac/Chest: regular rate, rhythm Abdomen: non-tender, soft, No distended Skin: normal color, warm/dry Extremities: pedal edema Neuro/Psych: no motor/sensory deficits, alert, normal mood/affect, oriented x 3 ICD10 Worksheet Patient Problems: Problems Problem Status Onset Acute blood loss anemia Acute S/P aortic valve replacement with bioprosthetic valve Acute ~02/23/19 S/P mitral valve replacement with bioprosthetic valve Acute ~02/23/19 Chronic anemia Chronic Chronic anticoagulation Chronic Hx of mechanical aortic valve replacement Chronic Mitral stenosis Chronic
[2019-02-28] MEDS: INSULIN LISPRO 100 UNIT/ML SC SCH ×3 (08:13→18:19)
[2019-02-28] MEDS: SENNOSIDES/DOCUSATE SODIUM TAB PO SCH ×2 (08:22→21:02)
[2019-02-28] MEDS: METOPROLOL TARTRATE 25 MG TAB PO SCH ×2 (08:22→21:03)
[2019-02-28] MEDS: ALLOPURINOL 100 MG TAB PO SCH (08:23)
[2019-02-28] MEDS: metFORMIN HCL 500 MG TAB PO SCH ×2 (08:23→18:14)
[2019-02-28] MEDS: ATORVASTATIN CALCIUM 20 MG TAB PO SCH (08:23)
[2019-02-28] MEDS: POTASSIUM CL 10 MEQ TAB PO SCH (08:23)
[2019-02-28] MEDS: FUROSEMIDE 40 MG TAB PO SCH (08:24)
[2019-02-28] MEDS: PANTOPRAZOLE SODIUM 40 MG TAB PO SCH (08:24)
[2019-02-28] MEDS: ASPIRIN EC 325 MG TAB PO SCH (08:24)
[2019-02-28] MEDS: MULTIVITAMINS 1 EACH TAB PO SCH (10:22)
[2019-02-28] MEDS: FERROUS SULFATE 325 MG TAB PO SCH ×2 (10:22→21:03)
--- NOTE | 2019-02-28 14:06 | HOSPPROG ---
Hospitalist Progress Note Assessment/Plan: * DM II -on insulin sliding scale post-op - doing well -tolerating PO, metformin restarted -okay to stop glucose checks * Aortic and mitral bioprosthetic replacement -doing well post surgery * Obesity BMI 32 * Acute blood loss anemia - following -s/p [address] surgery to DC home in am. She is stable on home metformin. Hospitalist medicine to sign off. Please call with questions. Subjective: No new complaints. Objective: Vital Signs Temp Pulse Resp BP Pulse Ox 36.8 C 99 18 98/54 L 98 02/28/19 12:00 02/28/19 12:00 02/28/19 12:00 02/28/19 12:00 02/28/19 12:00 Laboratory Results 02/25/19 05:20 02/28/19 06:00 02/27/19 02/28/19 03/01/19 05:59 05:59 05:59 Intake Total 1030 775 Output Total 2000 1100 Balance -970 -325 PT 13.4 SEC (12.0-15.0) 02/28/19 06:00 INR 1.06 (0.83-1.16) 02/28/19 06:00 - Physical Exam Constitutional: no apparent distress, appears nourished, not in pain Cardiovascular: regular rate and rhythym, no murmur, rub, or gallop Respiratory: no respiratory distress, no rales or rhonchi, clear to auscultation Gastrointestinal: normoactive bowel sounds, soft, non-tender abdomen, no palpable masses Skin: no rashes or abrasions, no fluctuance, no induration Neurologic: AAOx3, sensation intact bilaterally Psychiatric: interacting appropriately, not anxious, not encephalopathic, thought process linear ICD10 Worksheet Patient Problems: Problems Problem Status Onset Chronic anticoagulation Chronic Chronic anemia Chronic Acute blood loss anemia Acute S/P mitral valve replacement with bioprosthetic valve Acute ~02/23/19 S/P aortic valve replacement with bioprosthetic valve Acute ~02/23/19 Hx of mechanical aortic valve replacement Chronic Mitral stenosis Chronic
--- NOTE | 2019-02-28 14:30 | ASMTCMCOM ---
CM Note CM Note Notes: 02/28/2019 Case Management Note Met w/pt. Pt stated that called insurance company and confirmed outpatient cardiac rehab is covered. Discussed w/ Nile ROBLES. Anticipating d/c on Wednesday. Case Management d/c poc: home with family support and outpatient cardiac rehab. Case Management to follow. Date Signed: 02/28/2019 02:29 PM Electronically Signed By:Vickie Francois RN
[2019-02-28] MEDS ORDERED: WARFARIN SODIUM 5 MG TAB PO ONE (16:00)
--- NOTE | 2019-02-28 16:19 | ECHO ---
[email or web address] [address] [address] Main: [phone] Echocardiography Examination Transthoracic Name: DIEGO SHEPARD MR#: [id number] Study Date: 02/28/2019 Study Time: 03:09 PM Date of : 1955 Age: 63 year(s) Height: 167.6 cm (66 in.) Weight: 88 kg (194 lb.) BSA: 1.97 m2 Gender: Female Examination: Limited Echo Contrast: Image Quality: Adequate Rhythm: Heart Rate: BP: 98 mmHg/54 mmHg Indication: r/o pericardial effusion, hypotensive, tachycardic Procedure Staff Referring Physician: Corporate Sales Trainer: Jennifer Perkins RDCS Reading Physician: Gavin Mathew MD Requesting Provider: Ordering Physician: Griffin Quick Indication: r/o pericardial effusion, hypotensive, tachycardic Measurements AV/MV Label Value Normal Value AV Vmax 2.08 m/s MV VTI 60.4 cm MV PGmax 34 mmHg MV PGmean 18 mmHg Conclusions Left Ventricle: Left ventricle is normal in size. Mitral Valve: A bioprosthetic mitral valve is in place. No MV prosthesis regurgitation. Aortic Valve: The aortic valve is a bioprosthesis. No prosthesis regurgitation. Pericardium: A pericardial fat pad is present. Patient: DIEGO SHEPRAD Study Date: 02/28/2019 Page 1 of 2 03:09 PM No pericardial effusion. Overall Conclusions: Compared to echo of 02/27/2019, today's echo showed a change in slightly increased velocities accross the MV but the patient was more tachycardic today o/w no significant changes . Findings Left Ventricle: Left ventricle is normal in size. Normal global systolic left ventricular function. Mitral Valve: There is mitral calcification. A bioprosthetic mitral valve is in place. No MV prosthesis regurgitation. Mitral Valve Measurements MV PGmean is 18 mmHg. Aortic Valve: The aortic valve is a bioprosthesis. The orifice motion of the prosthetic aortic valve is normal. No prosthesis regurgitation. Pericardium: A pericardial fat pad is present. No pericardial effusion. Exam Details Procedure Ordered: Limited Echo Procedure Status: Routine study Image Quality: Adequate Facility Location: Cardiac Echo 1 (No Signature Object) Patient: DIEGO SHEPARD Study Date: 02/28/2019 Page 2 of 2 03:09 PM [id number]
[2019-02-28] MEDS ORDERED: FUROSEMIDE 20 MG/2 ML VIAL IVP ONE (20:00)
[2019-02-28] MEDS: AMITRIPTYLINE HCL 100 MG TAB PO SCH (21:02)
[2019-03-01 05:02] LABS: INR 1.15 (0.83-1.16); PROTIME(PATIENT) 14.2 SEC (12.0-15.0)
--- NOTE | 2019-03-01 07:18 | SOAPPROG ---
SOAP Progress Note Assessment/Plan: POD #6: redo sternotomy, explant mechanical aortic valve, AVR with #19 Freeman Intuity bioprosthesis, MV replacement with #25 Magna bioprosthesis Severe mitral stenosis s/p MVR with bioprosthesis - Coumadin with INR goal 2-3 for 2 months with adjunctive ASA 325 mg h/o mechanical AVR s/p explant and replacement with bioprosthesis - Mgmt as per MVR Acute post-op blood loss anemia with coagulopathy - Stable s/p 5U PRBC - 2 units PRBCs transfused yesterday for hypotension/anemia/tachycardia with good effect DM 2, well-controlled by A1c of 5.7% - Mgmt as per hospitalist DVT prophylaxis - SCDs Disposition - PCU - Home today/tomorrow Subjective: Feeling better this AM. Looking forward to getting home. Objective: Vital Signs Temp Pulse Resp BP Pulse Ox 36.7 C 96 19 134/62 H 95 03/01/19 04:00 03/01/19 04:00 03/01/19 04:00 03/01/19 04:00 03/01/19 04:00 Laboratory Results 03/01/19 04:35 03/01/19 04:35 02/28/19 03/01/19 03/02/19 05:59 05:59 05:59 Intake Total 775 2350 Output Total 1100 2075 Balance -325 275 PT 14.2 SEC (12.0-15.0) 03/01/19 04:35 INR 1.15 (0.83-1.16) 03/01/19 04:35 Physical Exam - Physical Exam General Appearance: WD/WN, alert, no apparent distress EENT: No scleral icterus (R), No scleral icterus (L) Neck: normal inspection Respiratory: No respiratory distress Cardiac/Chest: regular rate, rhythm, tachycardia Abdomen: non-tender, soft, No distended Skin: normal color, warm/dry Extremities: No pedal edema Neuro/Psych: no motor/sensory deficits, alert, normal mood/affect, oriented x 3 ICD10 Worksheet Patient Problems: Problems Problem Status Onset Acute blood loss anemia Acute S/P aortic valve replacement with bioprosthetic valve Acute ~02/23/19 S/P mitral valve replacement with bioprosthetic valve Acute ~02/23/19 Chronic anemia Chronic Chronic anticoagulation Chronic Hx of mechanical aortic valve replacement Chronic Mitral stenosis Chronic
[2019-03-01] MEDS: INSULIN LISPRO 100 UNIT/ML SC SCH ×2 (08:37→12:31)
--- NOTE | 2019-03-01 09:13 | PDDCSUM ---
Discharge Summary Discharge Summary: ADMISSION DATE: 02/23/19 DISCHARGE DATE: 03/01/19 ADMISSION DIAGNOSES 1. Severe mitral stenosis 2. h/o aortic valve replacement with mechanical prothesis 3. DM 2, well-controlled by A1c of 5.7% DISCHARGE DIAGNOSES 1. As above 2. Acute post-op blood loss anemia with coagulopathy PROCEDURES 1. 02/23/19 (Lele Liz): redo sternotomy, explant mechanical aortic valve, AVR with #19 Freeman Intuity bioprosthesis, MV replacement with #25 Magna bioprosthesis HPI 63F with severe MS and h/o mechanical AVR admitted electively for redo sternotomy and MVR/AVR. HOSPITAL COURSE BY PROBLEM LIST 1. Severe MS - Coumadin with INR goal of 2-3 for 2 months with adjunctive ASA 325 mg. Secondary prevention with beta-remy prescribed. 2. h/o mechanical AVR - s/p explant and replacement with bioprosthesis Coumadin goal as per MVR as valve is now bioprosthetic. Pt and instructed on INR goal change. Rx given to pt with new INR goal for established monitoring facility. 3. Acute post-op blood loss anemia with coagulopathy - stable s/p 5U PRBCs. 4. DM 2 - managed post-operatively with insulin drip and sliding scale. Metformin restarted on d/c. CONDITION Good DISPOSITION Home, self-care PERTINENT DISCHARGE CLINICAL INFORMATION Vitals: 135/66, 103 SR, 98% on 1 LPM O2 Exam: NAD, SR, No respiratory distress, ND, soft, NTP, BLE trace edema Labs: INR: 1.15 ACTIVITY Pt was instructed on activity limitations and which problems to call [facility] with. Please see Discharge Plan in chart for specifics. DISCHARGE MEDICATIONS As per Home Medication List in [facility] PENDING STUDIES/LABS 1. CXR prior to surgical follow-up 2. INR 03/02 or 03/03 FOLLOW-UP 1. Johny Kelly (CT Surgery), 03/08/19, 11:45 AM 2. Miguel Pabon (Cardiology), to be arranged at surgical f/u
[2019-03-01] MEDS ORDERED: METOPROLOL TARTRATE 25 MG TAB PO SCH (09:15)
--- NOTE | 2019-03-01 09:17 | ASMTLACE ---
LACE Length of stay for Answers: 4-6 days current admission Acuity / Level of Answers: Yes Care: Did the patient have an inpatient admission? Comorbidities - select Answers: Diabetes (uncontrolled or all that apply controlled) Opioid dependence / Chronic pain Other Notes: HTN; HLD # of Emergency department Answers: 0 visits in the last 6 months Score: 13 Date Signed: 03/01/2019 09:17 AM Electronically Signed By:Vickie Francois RN
--- NOTE | 2019-03-01 09:20 | ASDISCHSUM ---
Discharge Information Plan Status:Home with No Needs Medically Cleared to Leave:03/01/2019 Discharge Date:03/01/2019 CM D/C Disposition:Home, Routine, Self-Care ADT D/C Disposition:Home, Routine, Self-Care Projected Discharge Date:03/01/2019 11:00 AM Transportation at D/C: Discharge Delay Reason: Follow-Up Date:03/01/2019 11:00 AM Discharge Slot: Final Diagnosis: Placement Information Referral Type:*Home Health Care Services Referral ID:[id number] Provider Name: Address 1: Phone Number: Address 2: Fax Number: City: Selection Factors: State: Patient Contact Information Contact Name:ALISHA Relationship: Address:[address] City:[place] Alternate Phone: State/Zip Code:[place] [address] Email: Financial Information Financial Class:BCOP Primary Plan Desc:[employer] Primary Plan Number:[id number] Secondary Plan Desc: Secondary Plan Number: Assessment Information LACE LACE Length of stay for Answers: 4-6 days current admission Acuity / Level of Answers: Yes Care: Did the patient have an inpatient admission? Comorbidities - select Answers: Diabetes (uncontrolled or all that apply controlled) Opioid dependence / Chronic pain Other Notes: HTN; HLD # of Emergency department Answers: 0 visits in the last 6 months Score: 13 Date Signed: 03/01/2019 09:17 AM Electronically Signed By:Vickie Francois RN [facility] Initial CM Assessment Living Arrangements What is your living Answers: With Spouse arrangement? Who do you live with? Type Of Residence What kind of residence do Answers: House you live in? Discharge Plan Comments Coordination Status Comments Notes: Patient is a 63yo female who has severe mitral regurgitation and is in need of right and left heart cath in preparation for reoperative sternotomy and mitral valve replacement. PT/OT Cardiac rehab ordered for the patient. The patient lives in [place] and states she wants to return home after surgery. Her insurance plan does not cover rehab programs and she states she has recovered from these type of surgeries at home before. Patient lives with her so she has support. CM following. Date Signed: 02/24/2019 01:13 PM Electronically Signed By:Marlen Wadsworth LCSW [facility] CM Progress Note CM Note CM Note Notes: 02/27/2019 Case Management Note Met w/pt to discuss insurance coverage. Requested pt contact [employer] for benefit coverage of home care and cardiac outpatient rehab. Faxed referral to [facility] via [employer]; waiting to hear if insurance is accepted by [facility]. Therapies recommending home care. Discussed w/Cheng ROBLES this am. Case Management d/c poc: to be determined. Case Management to follow. Date Signed: 02/27/2019 04:23 PM Electronically Signed By:Vickie Francois RN [facility] CM Progress Note CM Note CM Note Notes: 02/28/2019 Case Management Note Met w/pt. Pt stated that called insurance [id number] and confirmed outpatient cardiac rehab is covered. Discussed w/ Nile ROBLES. Anticipating d/c on Wednesday. Case Management d/c poc: home with family support and outpatient cardiac rehab. Case Management to follow. Date Signed: 02/28/2019 02:29 PM Electronically Signed By:Vickie Francois RN Case Management Discharge Plan Note Case Management Discharge Discharge Order Complete? Answers: Yes Patient to Obtain Answers: via [employer] Transportation Arranged Answers: Family/Friends Discharge Comments Notes: 03/01/2019 Case Management Note Pt to discharge with family support and outpatient cardiac rehab. Date Signed: 03/01/2019 09:17 AM Electronically Signed By:Vickie Francois RN Intervention Information
[2019-03-01] MEDS: ASPIRIN EC 325 MG TAB PO SCH (09:21)
[2019-03-01] MEDS: PANTOPRAZOLE SODIUM 40 MG TAB PO SCH (09:21)
[2019-03-01] MEDS: ATORVASTATIN CALCIUM 20 MG TAB PO SCH (09:21)
[2019-03-01] MEDS: SENNOSIDES/DOCUSATE SODIUM TAB PO SCH (09:21)
[2019-03-01] MEDS: metFORMIN HCL 500 MG TAB PO SCH (09:22)
[2019-03-01] MEDS: FERROUS SULFATE 325 MG TAB PO SCH (09:22)
[2019-03-01] MEDS: MULTIVITAMINS 1 EACH TAB PO SCH (09:22)
[2019-03-01] MEDS: ALLOPURINOL 100 MG TAB PO SCH (09:22)
[2019-03-01] MEDS: HYDROCODONE/APAP 5/325 TAB PO PRN (09:27)
[2019-03-01] MEDS: METOPROLOL TARTRATE 25 MG TAB PO SCH (09:38)
--- NOTE | 2019-03-01 09:50 | PDHOMEO2F ---
Home Oxygen Face to Face Home Orders: I certify that a physician or a nurse practitioner or physician's academic assistant has had a [id number] encounter with this patient on the date of this order due to the diagnosis listed, which relates to the primary reason the patient requires home oxygen. Alternative treatments have been tried, or considered, and deemed ineffective. It is anticipated that supplemental oxygen will result in improvement with treatment. Home oxygen qualifying diagnosis: mitral stenosis, obesity, frail, hypoxemia, anemia, tachycardia SpO2 on room air (%): 85 Frequency of home oxygen needed: continuous Home oxygen liters per minute: 1 Home oxygen delivery device: nasal cannula Concentrator: Yes E-tanks for mobility and back up: Yes If ordering portable O2, is the patient mobile in the home?: Yes I certify that, based on these findings, the home oxygen is medically necessary for this patient for the following length of time. Length of time home oxygen needed: 1 month
[2019-03-01 12:49] VITALS: BP 113/41
== END 2019-03-01 13:57 | disposition home or self-care (01) | DRG 220 ==
LOC: F2W 05:18 → F2N 07:45 → F2W 02-25 09:55
PROVIDERS: ADMIT Thoracic Surgery (Cardiothoracic Vascular Surgery); ATTEND Thoracic Surgery (Cardiothoracic Vascular Surgery)
PROC: 02RF08Z Replacement of Aortic Valve with Zooplastic Tissue, Open Approach (ICD-10-PCS; principal; 2019-02-23 07:15)
PROC: 02RG08Z Replacement of Mitral Valve with Zooplastic Tissue, Open Approach (ICD-10-PCS; principal; 2019-02-23 07:15)
PROC: 5A1221Z Performance of Cardiac Output, Continuous (ICD-10-PCS; principal; 2019-02-23 07:15)
PROC: 30233R1 Transfusion of Nonautologous Platelets into Peripheral Vein, Percutaneous Approach (ICD-10-PCS; 2019-02-23 07:15)
PROC: 30233K1 Transfusion of Nonautologous Frozen Plasma into Peripheral Vein, Percutaneous Approach (ICD-10-PCS; 2019-02-23 07:15)
PROC: 30233N1 Transfusion of Nonautologous Red Blood Cells into Peripheral Vein, Percutaneous Approach (ICD-10-PCS; 2019-02-23 07:15)
DX: I34.2 Nonrheumatic mitral (valve) stenosis (principal); D62 Acute posthemorrhagic anemia; D68.9 Coagulation defect, unspecified; E11.9 Type 2 diabetes mellitus without complications; I10 Essential (primary) hypertension; E78.5 Hyperlipidemia, unspecified; E66.9 Obesity, unspecified; Z68.35 Body mass index [BMI] 35.0-35.9, adult; Z95.2 Presence of prosthetic heart valve; Z79.84 Long term (current) use of oral hypoglycemic drugs; Z23 Encounter for immunization
CPT/HCPCS: 82435-PO; 82565-PO; 82947-PO; 82947-QW; 83605-ER; 84132-PO; 84295-PO; 84520-PO; 85014-ER; 97116-GP; 97162-GP; 97166-GO; 97530-GP; 97535-GO; G0009; J0153; J0171; J0282; J0610; J0690; J1100; J1250; J1265; J1644; J1815; J1940; J2001; J2150; J2250; J2260; J2270; J2370; J2405; J2704; J2720; J2930; J3010; J3475; J3480; P9016; P9041

== ENCOUNTER → 2019-03-08 | Outpatient (CLI) | payer OTHER | LOC: FLAB 10:35 ==